=== PATIENT | female | born 1985 | race Caucasian/White ===

== ENCOUNTER 2022-10-28 06:11 | Observation (INO) | payer OTHER, SELFPAY ==
--- NOTE | ~2022-10-28 | US_ITS ---
US OB limited w BPP DATE: 10/28/2022 08:01 INDICATION: Placenta and cervical length check TECHNIQUE: Real-time imaging and Doppler analysis COMPARISON: None FINDINGS: Live zaragoza intrauterine gestation, fetus in longitudinal lie, vertex presentation, with heart rate of 141 bpm. Posterior placenta. Cervical length measures 4.4 cm. A 4.25 cm deep amniotic fluid pocket is noted. BIOPHYSICAL PROFILE reported by vibration technician: breathin out of 2 movement: 2 out of 2 tone: 2 out of 2 Amniotic fluid pocket: 2 out of 2 Total score: 8 out of 8 IMPRESSION: Normal biophysical profile score of 8 out of 8 Cervical length measures 4.4 cm Reviewed, dictated and finalized at [facility]. Reviewed, dictated and finalized at location [facility]. HOL RUBBER
[2022-10-28 06:31] VITALS: BMI 39.4
--- NOTE | 2022-10-28 06:31 | OBADM ---
This patient, Kristin Christianson, admitted to the OB room OB Post 115 for observation. Patient/family oriented to hospital policies and general routines including ID bracelet, bed and alarms, visiting hours, pain management, procedures, bathroom and other care routines, personal items, smoking policy, room service/diet, and visiting hours. Patient/Family are encouraged to report perceived risks to care and to ask questions if they do not understand what they are told or what they should do.
[2022-10-28 06:45] VITALS: BP 115/75; PULSE 95
[2022-10-28 07:00] VITALS: BP 110/74; PULSE 89
[2022-10-28 07:15] VITALS: BP 108/69; PULSE 85
[2022-10-28 07:59] LABS: Hematocrit 28.5 % (37.0-47.0); Hemoglobin 9.5 g/dL (12.0-15.0); Mean Corpuscular HGB Conc 33.3 g/dl (32-36); Mean Corpuscular Hemoglobin 30.3 pg (26-34); Mean Corpuscular Volume 90.8 fl (80-100); Mean Platelet Volume 10.8 fl (7.4-10.4); Platelet Count Result 196 k/mm3 (150-375); Red Blood Count 3.14 M/mm3 (4.2-5.4); Red Cell Distribution Width 12.9 % (11.5-14.5); White Blood Count 12.9 K/mm3 (4.5-10.0)
--- NOTE | 2022-10-28 08:02 | PM.OBTRLD ---
OB - Triage/Final Diagnosis Visit Information Reason for evaluation: other (bleeding) Comments/Additional reasons for admission: I have assessed the risk for this patient, Kristinmaliha Christianson, and determined that she would benefit from observation care. Evaluation Vital signs: Vital Signs - 24 hr 10/28/22 06:45 10/28/22 07:00 10/28/22 07:15 Pulse Rate 95 89 85 Blood Pressure 115/75 110/74 108/69
--- NOTE | 2022-10-28 09:36 | PC.NURSE ---
0930- SPoke with Dr. Stephanie Hernandez, US reviewed. Patient still having scant amount of bright red bleeding on pad. Orders to continue to monitor for a few hours. Dr. Stephanie Hernandez will check in around noon.
--- NOTE | 2022-10-28 12:08 | PC.NURSE ---
1200- Dr. Stephanie Hernandez on unit. Patient still having small quarter size bright red bleeding when getting up to the bathroom each time. Orders for continued observation, betamethasone and NST q shift, patient may eat a regular diet.
[2022-10-28] MEDS: BETAMETHASONE SOD PHOS/ACETATE 30 MG/5 ML VIAL 12 MG IM (12:16)
--- NOTE | 2022-10-28 13:31 | PC.NURSE ---
1320- Dr. Stephanie Hernandez in to see patient, orders to discharge to home with bleeding precautions. Patient aware to be seen in office on Saturday.
== END 2022-10-28 13:34 | disposition home or self-care (01) ==
PROVIDERS: Admitting Provider Obstetrics & Gynecology; Visit Provider Obstetrics & Gynecology
DX: O46.93 Antepartum hemorrhage, unspecified, third trimester (principal); Z3A.34 34 weeks gestation of pregnancy
CPT/HCPCS: 36415; 76815; 76819; 85027; 96372; G0378; G0379; J0702

== ENCOUNTER 2022-10-29 11:49 | Outpatient (CLI) | payer OTHER, SELFPAY ==
[2022-10-29] MEDS: BETAMETHASONE SOD PHOS/ACETATE 30 MG/5 ML VIAL 12 MG IM (12:15)
== END 2022-10-29 11:50 | disposition home or self-care (01) ==
LOC: ANHOBOP 12:02
PROVIDERS: Visit Provider Obstetrics & Gynecology
DX: Z34.90 Encounter for supervision of normal pregnancy, unspecified, unspecified trimester (principal); Z3A.00 Weeks of gestation of pregnancy not specified
CPT/HCPCS: 96372; J0702

== ENCOUNTER 2022-11-22 10:00 | Outpatient (CLI) | payer OTHER, SELFPAY ==
--- NOTE | ~2022-11-22 | US_ITS ---
EXAMINATION: US OB transvaginal DATE: 11/22/2022 10:52 INDICATION: Low-lying placenta TECHNIQUE: Real-time ultrasound of the pelvis was performed. The interpreting radiologist was not pre sent for the study. COMPARISON: 10/28/2022 FINDINGS: There is a single living fetus in vertex presentation. The placenta is posterior with caudal margin 7.0 cm from the internal cervical os. The cervical length measures 4.4 cm which is normal. hear t rate is 141 beats per minute (bpm). The amniotic fluid volume is subjectively normal. IMPRESSION: 1. Single living fetus in vertex presentation with heart rate of 141 bpm. 2. Normal appearing posterior placenta with caudal margin 7.0 cm from the internal cervical os. Reviewed, dictated and finalized at location [facility]. R BANDER HAND IMPRESSION: 1. Single living fetus in vertex presentation with heart rate of 141 bpm . 2. Normal appearing posterior placenta with caudal margin 7.0 cm from the inter nal cervical os.
== END 2022-11-22 10:01 | disposition home or self-care (01) ==
LOC: ANHIMG 10:04
PROVIDERS: Visit Provider Obstetrics & Gynecology
DX: O44.40 Low lying placenta NOS or without hemorrhage, unspecified trimester (principal); Z3A.00 Weeks of gestation of pregnancy not specified
CPT/HCPCS: 76817

== ENCOUNTER 2022-12-01 04:27 | Inpatient (IN) | payer OTHER, SELFPAY ==
[2022-12-01] VITALS (137 sets, daily range): BP systolic 82–128; BP diastolic 47–94; PULSE 65–116; RESP 16–18; TEMP 36.5–37.6; O2SAT 95–100; BMI 42.1
--- NOTE | 2022-12-01 04:27 | LDADM ---
This patient, Kristin Christianson, was admitted to Labor/Delivery/Recovery 102 on 12/01/22 at 04:27. Plans for labor, pain management and were discussed with patient. Patient/family oriented to hospital policies and general routines including ID bracelet, bed and alarms, visiting hours, pain management, procedures, bathroom and other care routines, personal items, smoking policy, room service/diet and guest tray routines, security routines, and visiting hours. Patient/Family are encouraged to report perceived risks to care and to ask questions if they do not understand what they are told or what they should do. See OBIX for further documentation.
[2022-12-01 05:19] LABS: Basophils Absolute Auto 0.1 K/mm3 (0.0-0.1); Basophils Percent Auto 0.6 % (0.2-1.2); Eosinophils Absolute Auto 0.2 K/mm3 (0-0.3); Eosinophils Percent Auto 1.2 % (0-4.4); Hematocrit 37.5 % (37.0-47.0); Hemoglobin 12.2 g/dL (12.0-15.0); Immature Granulocyte Absolute 0.23 K/mm3 (0.00-0.031); Immature Granulocyte Percent A 1.5 % (0-0.5); Lymphocytes Absolute Auto 2.08 K/mm3 (0.9-3.2); Lymphocytes Percent Auto 13.6 % (18.3-44.2); Mean Corpuscular HGB Conc 32.5 g/dl (32-36); Mean Corpuscular Hemoglobin 28.4 pg (26-34); Mean Corpuscular Volume 87.2 fl (80-100); Mean Platelet Volume 11.4 fl (7.4-10.4); Monocytes Absolute Auto 0.8 K/mm3 (0.1-0.6); Monocytes Percent Auto 4.9 % (2.6-8.5); Neutrophils Absolute Auto 11.9 K/mm3 (1.3-6.7); Neutrophils Percent Auto 78.2 % (45.5-73.1); Platelet Count Result 236 k/mm3 (150-375); Red Cell Distribution Width 13.5 % (11.5-14.5); White Blood Count 15.3 K/mm3 (4.5-10.0)
[2022-12-01] MEDS: LACTATED RINGERS 1,000 ML 125 ML IV CONT ×3 (06:45→16:05)
[2022-12-01] MEDS: OXYTOCIN 30 UNITS/NS 500 ML 30 UNITS/500 ML BAG IV CONT (06:46)
--- NOTE | 2022-12-01 07:00 | PM.IMHP ---
H&P: HPI History of Present Illness Date/Time: 12/01/22 07:00 Chief Complaint: labor Narrative: this is a 37-year-old 2 para 1 whose last menstrual period was 03/06/2022, EDC is 12/05/2022, presents at 39 weeks gestation in active labor. has been complicated low-lying placenta. She also has a history of herpes and was begun Valtrex earlier. She has history of ADHD was on Adderall she is presently fluoxetine. She does desire a tubal ligation she has . [facility] Family History Family History Father Depression Hypertension Family history of attention deficit hyperactivity disorder (ADHD) Family history of hearing loss Mother Family history of seizure disorder Other Family history of lung cancer Social History Social History Smoking status: Never smoker Alcohol intake: current Substance use: never Lack of Transportation: No Lack of Food: Never True Current Housing: I Have Housing Concerned About Future Housing: No Difficulty Paying Gas/Electric Bills: No Difficulty Paying for Meds: No Currently Unemployed: No Education: Bachelor's Degree Difficulty w/ Childcare or Family Care: No Spiritual care concerns: No Meds Home Medications and Allergies Home Medications Medication Instructions Recorded Confirmed Type prenat.vits,renee,[id number] 1 tablet PO DAILY 11/05/22 11/05/22 History Allergies Allergy/AdvReac Type Severity Reaction Status Date / Time No Known Allergies Allergy Verified 10/28/22 12:20 Vital Signs Vital Signs - 24 hr 12/01/22 05:01 12/01/22 05:15 12/01/22 05:30 Temperature Pulse Rate 72 88 93 Blood Pressure 88/48 L 106/66 109/76 Oxygen Delivery 12/01/22 05:45 12/01/22 06:00 12/01/22 06:15 Temperature Pulse Rate 81 101 H 101 H Blood Pressure 114/72 111/72 107/76 Oxygen Delivery 12/01/22 06:30 12/01/22 06:45 12/01/22 06:53 Temperature 97.7 F Pulse Rate 87 78 Blood Pressure 113/75 128/76 Oxygen Delivery 12/01/22 05:19 Temperature Pulse Rate Blood Pressure Oxygen Delivery Room Air Exam Const: General: cooperative, healthy appearing and comfortable Nutritional Appearance: average body habitus Orientation/consciousness: oriented to person, oriented to place and oriented to time Resp: Effort & Inspection: normal respiratory effort Cardio: Rate: regular rate Rhythm: regular rhythm Heart sounds: S1 normal heart sound present and S2 normal heart sound present GI: Inspection: normal to inspection : External Female Exam: normal external appearance Speculum Exam - Vagina: normal appearance of the vagina Speculum Exam - Cervix: normal appearance of the cervix ( . FHTs were reassuring.) H&P: Results Labs Labs: Short CBC 12/01/22 Range/Units 05:13 WBC 15.3 H (4.5-10.0) K/mm3 Hgb 12.2 (12.0-15.0) g/dL Hct 37.5 (37.0-47.0) % Plt Count 236 (150-375) k/mm3 Assessment and Plan Assessment and plan (1) Term : Code(s): Z34.90 - Encounter for supervision of normal , unspecified, unspecified trimester Status: Acute Plan spontaneous vaginal delivery expected. She has an epidural candidate. She does desires a tubal ligation if a is deemed necessary
--- NOTE | 2022-12-01 12:15 | WPDANESEPPF ---
Anes - Initial Pre Proc Eval Procedure: labor epidural Date/Time: 12/01/22 12:15 Surgeon: Mario Javed MD Pre Op Diagnosis: labor pain Pre Op Diagnosis: Labor Patient Data Age: 37 Gender: F Height: 1.6 m Weight: 108 kg Last Vital Signs Temp 36.8 C 12/01/22 12:08 Pulse 89 12/01/22 12:00 BP 115/67 12/01/22 12:00 O2 Del Method Room Air 12/01/22 05:19 Allergies Allergy/AdvReac Type Severity Reaction Status Date / Time No Known Allergies Allergy Verified 10/28/22 12:20 Home Medications Medication Instructions Recorded Confirmed Type prenat.vits,renee,jcx-wkpe-sewus 1 tablet PO DAILY 11/05/22 11/05/22 History Laboratory Tests 12/01/22 12/01/22 12/01/22 05:13 05:13 05:13 WBC 15.3 K/mm3 H K/mm3 (4.5-10.0) RBC 4.30 M/mm3 M/mm3 (4.2-5.4) Hgb 12.2 g/dL g/dL (12.0-15.0) Hct 37.5 % % (37.0-47.0) MCV 87.2 fl fl (80-100) MCH 28.4 pg pg (26-34) MCHC 32.5 g/dl g/dl (32-36) RDW 13.5 % % (11.5-14.5) Plt Count 236 k/mm3 k/mm3 (150-375) MPV 11.4 fl H fl (7.4-10.4) Immature Gran % (Auto) 1.5 % H % (0-0.5) Neut % (Auto) 78.2 % H % (45.5-73.1) Lymph % (Auto) 13.6 % L % (18.3-44.2) Wetzel % (Auto) 4.9 % % (2.6-8.5) Eos % (Auto) 1.2 % % (0-4.4) Baso % (Auto) 0.6 % % (0.2-1.2) Lymph # (Auto) 2.08 K/mm3 K/mm3 (0.9-3.2) Wetzel # (Auto) 0.8 K/mm3 H K/mm3 (0.1-0.6) Eos # (Auto) 0.2 K/mm3 K/mm3 (0-0.3) Baso # (Auto) 0.1 K/mm3 K/mm3 (0.0-0.1) Abs Immat Gran (auto) 0.23 K/mm3 H K/mm3 (0.00-0.031) Absolute Neuts (auto) 11.9 K/mm3 H K/mm3 (1.3-6.7) Absolute Nucleated RBC 0.0 K/mm3 K/mm3 (0.0-0.012) Nucleated RBC % 0.0 % % (0.0-0.2) RPR Pending Blood Type A Positive Antibody Screen Negative Patient hx anesthesia problems: none Family hx anesthesia problems: none Results Review: All pre-operative results and documents have been reviewed as part of the pre-operative evaluation. [facility] Family History Family History Father Depression Hypertension Family history of attention deficit hyperactivity disorder (ADHD) Family history of hearing loss Mother Family history of seizure disorder Other Family history of lung cancer Social History Social History Smoking status: Never smoker Alcohol intake: current Substance use: never Lack of Transportation: No Lack of Food: Never True Current Housing: I Have Housing Concerned About Future Housing: No Difficulty Paying Gas/Electric Bills: No Difficulty Paying for Meds: No Currently Unemployed: No Education: Bachelor's Degree Difficulty w/ Childcare or Family Care: No Spiritual care concerns: No Anes - Eval Final PreProcedure Day of Procedure 12/01/22 12:15 Heart: regular rate and rhythm Lungs: clear to auscultation and normal air movement Airway: Mallampati scale class II Neurological: alert and oriented Results Review: All pre-operative results and documents have been reviewed as part of the pre-operative evaluation. Informed Consent: The patient's anesthetic plan and its attendant risks and benefits were discussed with the patient/family/POA. Questions were solicited and answers provided to the satisfaction of the patient/family/POA.
--- NOTE | 2022-12-01 17:17 | PM.OBPRVD ---
OB - Delivery Note Procedure Delivery date: 12/01/22 Induction method: None Delivery monitor: External FHT and Internal Uterine Route of delivery: Episiotomy description: None Laceration Description: Perineal - 2nd Degree Delivery repair: vicryl Specimen: No Anesthesia type: Epidural Disposition: Floor [place] Baby Date of : 12/01/22 Weeks of gestation at delivery: 39 presentation: vertex position: Right Occiput Anterior Placenta delivery description: Spontaneous Cord Vessel Description: 3 Vessels, Nuchal Cord and Loose score one minute: 8 score five minutes: 9
[2022-12-01] MEDS: OXYTOCIN 30 UNITS/NS 500 ML 30 UNITS/500 ML BAG 125 UNITS IV CONT (17:37)
[2022-12-01] MEDS: IBUPROFEN 600 MG TABLET PO (19:30)
[2022-12-01] MEDS: BENZOCAINE 20% AER SPR (*SP) 56 GM CAN 1 SPRAY TOPICAL (19:30)
[2022-12-01] MEDS: WITCH HAZEL 40 PADS 1 PAD TOPICAL (19:30)
--- NOTE | 2022-12-01 19:41 | OBPPTRN ---
Patient transferred to post room #282 via W/C. Support person present. Oriented to unit, room, information board, rooming in, admission packet and security measures. Patient verbalizes understanding.
[2022-12-01] MEDS: ACETAMINOPHEN 325 MG TABLET 650 MG PO (23:47)
[2022-12-02 04:40] VITALS: BP 114/74; PULSE 70; RESP 18; TEMP 36.6
[2022-12-02] MEDS: IBUPROFEN 600 MG TABLET PO ×2 (04:40→11:14)
[2022-12-02 05:14] LABS: Hematocrit 28.3 % (37.0-47.0); Hemoglobin 9.3 g/dL (12.0-15.0)
[2022-12-02 08:00] VITALS: BP 122/75; PULSE 77; RESP 16; TEMP 36.6; O2SAT 100
--- NOTE | 2022-12-02 08:00 | WPDANLDPN2 ---
Anes-Prog Note L&D Date/Time: 12/02/22 08:00 Comfortable throughout: labor Neuraxial method: epidural Epidural/Spinal procedure site: clean & non-tender Neuro status: Neuro function grossly intact. Cardiovascular status: normal Respiratory status: normal Airway patency: baseline Mental status: baseline Vital Signs: Last Vital Signs Temp 36.6 C 12/02/22 04:40 Pulse 70 12/02/22 04:40 Resp 18 12/02/22 04:40 BP 114/74 12/02/22 04:40 Pulse Ox 100 12/01/22 17:03 O2 Del Method Room Air 12/01/22 19:50 Pain score (VAS): <3 I/O: Intake & Output 12/01/22 12/02/22 12/02/22 23:59 07:59 15:59 Intake Total 2250 Output Total 153 Balance 2097 Patient feedback: Patient satisfied with anesthetic care.
--- NOTE | 2022-12-02 08:01 | PM.DS ---
DS: Admitting Diagnosis Discharge Date 12/02/2022 Admitting Diagnosis Term in active labor DS: Discharge Diagnosis Discharge Diagnosis (1) Term : Code(s): Z34.90 - Encounter for supervision of normal , unspecified, unspecified trimester Status: Acute DS: Summary Hospital Course Reason for hospitalization: Patient was admitted in active labor. She underwent spontaneous vaginal delivery on 12/01/2022. Her hospital course unremarkable. She remained afebrile. She was up, voiding without difficulty, ambulating, eating regular diet, general without complaints. Hospital Course: See above Time Spent with Patient Time attestation: Total time spent providing and/or coordinating discharge services: Exam Const: General: cooperative, healthy appearing and comfortable Nutritional Appearance: average body habitus Orientation/consciousness: oriented to person, oriented to place and oriented to time HENMT: Head: normal to inspection Resp: Effort & Inspection: normal respiratory effort Cardio: Rate: regular rate Rhythm: regular rhythm Heart sounds: S1 normal heart sound present and S2 normal heart sound present GI: Inspection: normal to inspection DS: Data Data Completed and Pending Labs on day of discharge: Labs from last 24 hours 12/02/22 04:37 Hgb 9.3 L Hct 28.3 L Discharge Plan Discharge Attending physician on discharge: Jin Nielsen Discharging Clinician: Jin Nielsen Patient Disposition: Home, Self-Care Activity: may shower and no straining Diet: heart healthy Patient Instructions: Antibiotic Form Stand Alone Forms: General Discharge Information Follow-up/Referrals: Mario Javed MD [Physician] - Discharge Medications: Continued #2 Tablet 1 tablet PO DAILY Date of admission: 12/01/22 04:27 Primary Care Provider: PHYSICIAN,QA SOFTWARE TEST ENGINEER Admitting Provider: Mario Javed Attending physician on admission: Mario Javed Condition: Stable
--- NOTE | 2022-12-02 08:05 | PM.OBPNVD ---
OB - PN: Subj Subjective Date/time seen: 12/02/22 08:05 Patient comments: no complaints and pain well controlled baby status: doing well and nursing well OB - PN: Obj Data Labs 12/02/22 04:37 Labs: Laboratory Results - last 24 hr 12/02/22 04:37 Hgb 9.3 L Hct 28.3 L OB - PN A/P Plan day: 1 Plan: routine care, discharge home and follow up 6 weeks Time Spent With Patient Time: Total time spent is greater than 50% in coordination of care (as documented) at patient's floor/unit and/or counseling patient: Time with patient: less than 15 minutes Exam Const: General: cooperative, healthy appearing and comfortable Nutritional Appearance: average body habitus Orientation/consciousness: oriented to person, oriented to place and oriented to time HENMT: Head: normal to inspection Resp: Effort & Inspection: normal respiratory effort GI: Inspection: normal to inspection (Fundus firm below the umbilicus)
[2022-12-02] MEDS: POLYSACCHARIDE IRON COMPLEX 150 MG CAPSULE PO ×2 (08:57→16:27)
[2022-12-02] MEDS: DOCUSATE SODIUM 100 MG CAPSULE PO ×2 (08:57→16:27)
[2022-12-02] MEDS: MULTIVIT/MIN/PREN/FOL AC/IRON TABLET 1 TAB PO (08:57)
[2022-12-02 12:36] VITALS: BP 117/76; PULSE 78; RESP 16; TEMP 36.8; O2SAT 98
--- NOTE | 2022-12-02 17:55 | PC.NURSE ---
Patient was given the opportunity to view the discharge video Mother & Baby Care, The First Two Weeks and to ask questions. Patient declined viewing the video and has been given the mother/baby guide for home reference.
[2022-12-03 08:05] LABS: Rapid Plasma Reagin Non-Reactive (NonReactive)
[2022-12-03 15:57] VITALS: BP 123/72; PULSE 88; RESP 20; TEMP 37.2; O2SAT 98
== END 2022-12-02 19:30 | disposition home or self-care (01) | DRG 560 ==
LOC: ANHLDR 05:30 → ANHOB2 12-02 08:04 → ANHLDR 12-05 07:18 → ANHOB2 12-05 07:18
PROVIDERS: Admitting Provider Obstetrics & Gynecology; Visit Provider Obstetrics & Gynecology
DX: O69.81X0 Labor and delivery complicated by cord around neck, without compression, not applicable or unspecified (principal); O44.43 Low lying placenta NOS or without hemorrhage, third trimester; Z37.0 Single live birth; Z3A.39 39 weeks gestation of pregnancy; O98.32 Other infections with a predominantly sexual mode of transmission complicating childbirth; A60.09 Herpesviral infection of other urogenital tract; O36.8330 Maternal care for abnormalities of the fetal heart rate or rhythm, third trimester, not applicable or unspecified; O70.1 Second degree perineal laceration during delivery; O99.344 Other mental disorders complicating childbirth; F90.9 Attention-deficit hyperactivity disorder, unspecified type
CPT/HCPCS: 36415; 85014; 85018; 85025; 86592; 86850; 86900; 86901; A9270; J2590; J2795; J7120

== ENCOUNTER 2023-08-04 07:35 | Emergency (ER) | payer OTHER, SELFPAY ==
[2023-08-04] VITALS (11 sets, daily range): BP systolic 106–125; BP diastolic 58–73; PULSE 95–114; RESP 18–31; TEMP 37–37.3; O2SAT 100
--- NOTE | 2023-08-04 07:56 | PC.NURSE ---
patient states she was bitten by a spider on right side under axilla. patient did see the spider. states unsure of type of spider. she reports this happened around 0530 yesterday morning. she did lucisu it and it has gotten a little bit smaller. however she states she woke up this morning with a generalized rash and fever. denies any respiratory symptoms
[2023-08-04] MEDS: diphenhydrAMINE HCl INJ 50 MG/ML VIAL 25 MG IV PUSH (08:10)
[2023-08-04 08:19] LABS: Basophils Percent Auto 0.1 % (0.2-1.2); Eosinophils Absolute Auto 0.7 K/mm3 (0-0.3); Eosinophils Percent Auto 3.7 % (0-4.4); Hemoglobin 13.2 g/dL (12.0-15.0); Immature Granulocyte Absolute 0.12 K/mm3 (0.00-0.031); Immature Granulocyte Percent A 0.6 % (0-0.5); Lymphocytes Absolute Auto 0.37 K/mm3 (0.9-3.2); Lymphocytes Percent Auto 1.9 % (18.3-44.2); Mean Corpuscular Hemoglobin 29.9 pg (26-34); Mean Corpuscular Volume 90.7 fl (80-100); Mean Platelet Volume 10.8 fl (7.4-10.4); Monocytes Absolute Auto 0.5 K/mm3 (0.1-0.6); Monocytes Percent Auto 2.8 % (2.6-8.5); Neutrophils Absolute Auto 17.4 K/mm3 (1.3-6.7); Neutrophils Percent Auto 90.9 % (45.5-73.1); Platelet Count Result 227 k/mm3 (150-375); Red Blood Count 4.41 M/mm3 (4.2-5.4); Red Cell Distribution Width 13.2 % (11.5-14.5); White Blood Count 19.1 K/mm3 (4.5-10.0)
[2023-08-04] MEDS: SODIUM CHLORIDE 0.9% IV 1,000 ML 999 ML IV CONT (08:26)
--- NOTE | 2023-08-04 08:26 | ED.GENADULT ---
HPI - General Adult General Chief complaint: Skin/Abscess/Foreign Body Stated complaint: Spider Bite I feel weak and my skin is red Time Seen by Provider: 08/04/23 07:45 History of Present Illness HPI narrative: Patient is a 37-year-old female who presents ER with spider bite. Right chest wall beneath the axilla and lateral to the breast. Occurred yesterday. She killed either that was on her when she was getting in the shower. It became increasingly red yesterday. Today she woke up and she felt flushed all over her body. She has pruritus. No fevers or chills. No drainage from the site. She does not know if it was a brown recluse or not. She reports that it had thin legs. Related Data Home Medications Medication Instructions Recorded Confirmed prenat.vits,renee,[id number] 1 tablet PO DAILY 11/05/22 11/05/22 Allergies Allergy/AdvReac Type Severity Reaction Status Date / Time No Known Allergies Allergy Verified 10/28/22 12:20 Review of Systems Review of Systems: All systems reviewed & are unremarkable except as noted in HPI and below Constitutional: Constitutional: Denies chills, Denies fatigue and Denies fever(s) Cardiovascular: Cardiovascular: Reports no additional cardiovascular complaints Respiratory: Respiratory: Reports no additional respiratory complaints Integumentary/Breasts: Skin/Breast: Reports pruritus, Reports erythema, Denies rash and Denies skin ulcer Neurologic: Reports system reviewed and no additional complaints, except as documented PMFSH Past Medical History Medical History (Updated 08/04/23 @ 10:48 by Felipe Wells MD) Healthy female adult Surgical History Surgical History (Updated 08/04/23 @ 08:28 by Felipe Wells MD) No pertinent past surgical history Family History Family History Father Depression Hypertension Family history of attention deficit hyperactivity disorder (ADHD) Family history of hearing loss Mother Family history of seizure disorder Other Family history of lung cancer Social History Social History Smoking status: Never smoker Alcohol intake: current Substance use: never Lack of Transportation: No Lack of Food: Never True Current Housing: I Have Housing Concerned About Future Housing: No Difficulty Paying Gas/Electric Bills: No Difficulty Paying for Meds: No Currently Unemployed: No Education: Bachelor's Degree Difficulty w/ Childcare or Family Care: No Spiritual care concerns: No Exam Narrative: GENERAL: Well-appearing, well-nourished, and in no acute distress. HEAD: Normocephalic, atraumatic. ENT: Mucous membranes moist. CHEST: Clear to auscultation. No respiratory distress. HEART: Regular rate and rhythm. Normal peripheral pulses. EXTREMITIES: Normal range of motion. No edema. SKIN: Warm, dry. Bite lucius right chest wall mid axillary line lateral to the breast. Small raised area 5 mm in diameter, no pustules, no drainage. There is erythema extending beyond the bite lucius proximally and centimeters in diameter. This has progressed to diffuse erythema noted most prominent in the right arm and chest. No excoriations. No petechiae. NEURO: Alert and oriented x3. PSYCH: Normal mood and affect. Course Vital Signs Vital signs: Vital Signs Temperature 98.6 F 08/04/23 07:38 Pulse Rate 114 H 08/04/23 07:38 Respiratory Rate 18 08/04/23 07:38 Blood Pressure 125/73 08/04/23 07:38 Pulse Oximetry 100 08/04/23 07:38 Temperature 98.8 F 08/04/23 07:59 Pulse Rate 101 H 08/04/23 09:32 Respiratory Rate 30 H 08/04/23 09:32 Blood Pressure 110/67 08/04/23 09:31 Pulse Oximetry 100 08/04/23 09:32 Medical Decision Making [facility] Narrative Medical decision making narrative: -Presentation: 37-year-old female presented ER spider bite. -DDX includes but
[2023-08-04 08:29] LABS: Alanine Aminotransferase 13 U/L (6-35); Albumin Level 3.6 g/dL (3.5-5.1); Alkaline Phosphatase 73 U/L (38-126); Anion Gap 7 mmol/L (8-16); Aspartate Amino Transferase 19 U/L (14-36); Bilirubin,Total 1.2 mg/dL (0.2-1.3); Blood Urea Nitrogen 12 mg/dL (7-17); Calcium 8.4 mg/dL (8.4-10.2); Carbon Dioxide 25 mmol/L (22-30); Chloride 102 mmol/L (98-107); Estimated CRCL calculation 92 ml/min; Estimated Glomerular Filt Rate > 60; Glucose 108 mg/dL (65-110); Potassium 3.9 mmol/L (3.4-5.0); Sodium 134 mmol/L (137-145)
[2023-08-04 09:19] LABS: Creatine Kinase 30 U/L (30-135)
[2023-08-04 09:22] LABS: INR 1.2; Partial Thromboplastin Time 32.6 SECONDS (22.3-36.8); Prothrombin Time 15.2 Seconds (11.1-14.7)
[2023-08-04] MEDS: ceFAZolin 1 GM/NS 50 ML 1 GM/50 ML BAG IVPB (10:48)
== END 2023-08-04 11:31 | disposition home or self-care (01) ==
PROVIDERS: Emergency Provider Emergency Medicine
DX: T63.301A Toxic effect of unspecified spider venom, accidental (unintentional), initial encounter (principal); L03.313 Cellulitis of chest wall
CPT/HCPCS: 36415; 80053; 82550; 85025; 85610; 85730; 96361; 96365; 96375; 99284; J0690; J1200; J7030

== ENCOUNTER 2023-08-06 14:06 | Emergency (ER) | payer OTHER, SELFPAY ==
[2023-08-06 14:16] VITALS: BP 101/54; PULSE 112; RESP 14; TEMP 36.6; O2SAT 100
--- NOTE | 2023-08-06 18:32 | PC.NURSE ---
Called patient in waiting room to repeat VS without response.
== END 2023-08-06 18:32 | disposition left against medical advice (07) ==
DX: R21 Rash and other nonspecific skin eruption (principal)
CPT/HCPCS: 99199